=== PATIENT | female | born 1970 | race Caucasian/White ===

== ENCOUNTER 2018-06-22 12:40 | Outpatient (CLI) | payer OTHER ==
[2018-06-22] MEDS ORDERED: Iopamidol 370 76% 100 ML VIAL ONE (15:07)
--- NOTE | 2018-06-27 11:47 | CT ---
CT CORONARY ARTERIOGRAM WITH IV CONTRAST AND 3D POSTPROCESSING (INCLUDING EVALUATION ON INDEPENDENT 3 D WORKSTATION): DATE: 06/22/18 HISTORY: Screening. Family history on both sides of heart disease. IV CONTRAST: 95 mL [id number]. FINDINGS: CT CORONARY CALCIUM SCORING: LMA: 0 LAD: 0 LCX: 0 RCA: 0 PDA: 0 Total calcium score: 0, using the AJ-130 method There is good arterial opacification of the coronary arteries. No significant stenosis is seen in the left main, LAD and diagonals, LCX and obtuse marginal, RCA, and posterior descending arteries. Quantitative left ventricular function measurements are as follows: Ejection fraction: 58% End-diastolic volume: 80 mL End-systolic volume: 34 mL Stroke volume: 46 mL/minute Cardiac output: 2.5 liters/minute Myocardial mass: 77 gm No pericardial or pleural effusions are seen. The left ventricular wall motion is normal. The visualized lung [place] are clear. There are mild degenerative changes in the spine. IMPRESSION: 1. Total coronary calcium score is 0. 2. Normal coronary arteries. POS: BENITA
== END 2018-06-22 12:41 | disposition home or self-care (01) ==
LOC: BICCT 12:40
PROVIDERS: ATTEND Internal Medicine
DX: R07.9 Chest pain, unspecified (principal)
CPT/HCPCS: 75574; Q9967

== ENCOUNTER 2019-05-20 11:06 | Outpatient (CLI) | payer BC ==
--- NOTE | 2019-05-20 12:11 | CT ---
CT Chest WO Con History: Chronic cough Comparison: Radiograph May 01, 2019 Findings: CT of the chest was performed in the supine and prone positions. No pneumothorax. No effusion. No pulmonary fibrosis. No subpleural reticulation. Mass and nodule evaluation is limited due to technique. No reformats were provided. No subpleural ret iculation. No bronchiectasis. No bronchial wall thickening. No adenopathy. No acute osseous abnormality. Upper abdomen is unremarkable. Impression: Normal high-resolution CT examination of the chest.
== END 2019-05-20 11:07 | disposition home or self-care (01) ==
LOC: SCSCT 11:06
PROVIDERS: ATTEND Internal Medicine
DX: R05 Cough (principal)
CPT/HCPCS: 71250

== ENCOUNTER 2019-12-03 11:24 | Outpatient (CLI) | payer BC ==
--- NOTE | 2019-12-03 12:20 | CT ---
CT OF THE CHEST, ABDOMEN AND PELVIS WITH IV CONTRAST INDICATION: Fever COMPARISON: CT of the chest without contrast dated May 19, 2020 CT of the pelvis dated March 27 FINDINGS: CHEST: Lungs: The lungs are clear. Pleural space: No effusion. Mediastinum: No pathologically enlarged lymph nodes are evident. Axilla: No pathologically enlarged lymph nodes. ABDOMEN: Liver: Small 8 mm cyst within segment 6 of the right hepatic lobe. Gallbladder: Surgically absent Pancreas: Normal. Adrenal glands: Normal. Spleen: Normal. Kidneys and ureters: Normal. No hydronephrosis. Vasculature: Normal. Lymph nodes:No lymphadenopathy. Free fluid in abdomen:No free fluid is evident. PELVIS: Small and large bowel: Normal. There is very slight wall thickening involving the gastric antrum and distal gastric body which may be related to underdistention. Appendix:Not definitely seen Bladder: Partially decompressed Rectal and perirectal soft tissues:Normal. Reproductive structures: Not well seen Free fluid in pelvis: No free fluid is evident. Lymphadenopathy pelvis: No lymphadenopathy is evident. Osseous structures: No acute osseous abnormality. No destructive osteolytic or osteoblastic lesion i s identified. There is scattered degenerative and osteoarthritic changes. Soft tissues:Normal. IMPRESSION: 1. No CT examination for the patient's fever. 2. Slight wall thickening involving gastric antrum and distal gastric body may reflect underlying gas tritis. Recommend correlation.
== END 2019-12-03 11:25 | disposition home or self-care (01) ==
LOC: SCSCT 11:24
PROVIDERS: ATTEND Internal Medicine Infectious Disease
DX: R50.9 Fever, unspecified (principal); K31.89 Other diseases of stomach and duodenum
CPT/HCPCS: 71260; 74177

== ENCOUNTER 2020-04-21 15:03 | Outpatient (CLI) | payer BC ==
--- NOTE | 2020-04-21 16:18 | MMO ---
Bilateral MAMMO Bilat Screen [facility]. CLINICAL HISTORY: Patient is 50 years old and is seen for screening. The patient has no family history of breast cancer. The patient has no personal history of cancer. VIEWS: The views performed were: bilateral craniocaudal with tomosynthesis and bilateral mediolateral oblique with tomosynthesis. FILMS COMPARED: The present examination has been compared to prior imaging studies performed at [facility] on 10/05/2012, 06/06/2014, 07/03/2015 and 11/25/2016. This study has been interpreted with the assistance of computer-aided detection. MAMMOGRAM FINDINGS: The breasts are heterogeneously dense, which could obscure a lesion on mammography. There are no suspicious masses, suspicious calcifications, or new areas of architectural distortion. IMPRESSION: THERE IS NO MAMMOGRAPHIC EVIDENCE OF MALIGNANCY. A ROUTINE FOLLOW-UP MAMMOGRAM IN 1 YEAR IS RECOMMENDED. THE RESULTS OF THIS EXAM WERE SENT TO THE PATIENT. ACR BI-RADS Category 1 - Negative MAMMOGRAPHY NOTE: 1. A negative mammogram report should not delay a biopsy if a dominant of clinically suspicious mass is present. 2. Approximately 10% to 15% of breast cancers are not detected by mammography. 3. Adenosis and dense breasts may obscure an underlying neoplasm. Reported by: ERASMO RAPP MD Electonically Signed: [id number]
== END 2020-04-21 15:04 | disposition home or self-care (01) ==
LOC: BICMAMMO 15:03
PROVIDERS: ATTEND Obstetrics & Gynecology
DX: Z12.31 Encounter for screening mammogram for malignant neoplasm of breast (principal)
CPT/HCPCS: 77063; 77067